=== PATIENT | male | born 1960 | race Caucasian/White ===

== ENCOUNTER 2020-06-03 22:26 | Inpatient (IN) | payer BC ==
--- NOTE | 2020-06-03 23:08 | HP ---
CIWA Score Nausea/Vomitin-No Nausea/No Vomiting Muscle Tremors: 1-None Visible, but [place] Anxiety: 2 Agitation: 2 Paroxysmal Sweats: 3 Orientation: 1-Uncertain about Date Tacttile Disturbances: 0-None Auditory Disturbances: 0-None Visual Disturbances: 0-None Headache: 3-Moderate CIWA-Ar Total Score: 12 - Admission Criteria OAS Guidelines: Admission for Medically Managed Detox: Requires at least one of the followin. CIWA greater than 12 2. Seizures within the past 24 hours 3. Delirium tremens within the past 24 hours 4. Hallucinations within the past 24 hours 5. Acute intervention needed for co occurring medical disorder 6. Acute intervention needed for co occurring psychiatric disorder 7. Severe withdrawal that cannot be handled at a lower level of care (continued vomiting, continued diarrhea, abnormal vital signs) requiring intravenous medication and/or fluids 8. Patient presents the following: Acute intervention needed for co-occurring med or psych disorder (FEELS DEPRESSED, HOPELESS DUE TO RECENT RELAPSE. DENIES SI AT THIS TIME) Admission Criteria Met: Admission criteria met Admission ROS [facility] Chief Complaint: HERE FOR ALCOHOL DETOX. Allergies/Adverse Reactions: Allergies Allergy/AdvReac Type Severity Reaction Status Date / Time No Known Allergies Allergy Verified 06/03/20 23:25 History of Present Illness: HERE FOR ALCOHOL DETOX. CLIENT IS SELF REFERRED REPORTS DRINKING ALCOHOL DAILY FOR THE PAST 5 DAYS AFTER BEING CLEAN FOR THE PAST 4 MONTHS. CLIENT REPORTS LAST DRINK EARLIER TODAY. HE REPORTS DRINKING ABOUT 18/12 oz bottles of bear daily. REPORTS HX/ O BLACKOUTS, DENIES AVH, SEIZURES. HE ALSO REPORTS COCAINE ABUSE. DENIES IVDU. LIVES ALONE, UNEMPLOYED, DENIES LEGALS. Exam Limitations: No Limitations - Ebola screening Have you traveled outside of the country in the last 21 days: No Have you had contact with anyone from an Ebola affected area: No Have you been sick,other than usual withdrawal symptoms: No Do you have a fever: No - Review of Systems Constitutional: Chills, Loss of Appetite, Night Sweats EENT: reports: Dental Problems (PARTIAL DENUTRES) Respiratory: reports: No Symptoms reported Cardiac: reports: No Symptoms Reported GI: reports: Poor Appetite, Poor Fluid Intake : reports: No Symptoms Reported Musculoskeletal: reports: No Symptoms Reported Integumentary: reports: [place] Neuro: reports: Headache Endocrine: reports: No Symptoms Reported Hematology: reports: Easy Bleeding (BRYLINTA AC) Psychiatric: reports: Orientated x3, Anxious, Depressed (DENIES SI) Other Systems: Reviewed and Negative Patient History - Patient Medical History Hx Anemia: No Hx Asthma: No Hx Chronic Obstructive Pulmonary Disease (COPD): No Hx Cancer: No Hx Cardiac Disorders: Yes (CAD- STENTED) Hx Congestive Heart Failure: No Hx Hypertension: Yes Hx Hypercholesterolemia: Yes Hx Pacemaker: No HX Cerebrovascular Accident: No Hx Seizures: No Hx Dementia: No Hx Diabetes: No Hx Gastrointestinal Disorders: No Hx Liver Disease: No Hx Genitourinary Disorders: No Hx Sexually Transmitted Disorders: No Hx Renal Disease (ESRD): No Hx Thyroid Disease: No Hx Human Immunodeficiency Virus (HIV): No Hx Hepatitis C: No Hx Depression: Yes (ZOLOFT) Hx Suicide Attempt: No Hx Bipolar Disorder: No Hx Schizophrenia: No Other Medical History: DENIES - Patient Surgical History Past Surgical History: Yes Hx Cardiac Surgery: Yes (2013 CARDIAC STENTS) Other Surgical History: SPLEENECTOMY Anesthesia Reaction: No - PPD History Previous Implant?: Yes Documented Results: Negative w/o proof Implanted On Prior [facility] Admission?: No PPD to be Administered?: Yes - Smoking Cessation Smoking history: Current every day smoker Have you smoked in the past 12 months: Yes Aproximately how many cigarettes per day: 20 Cigars Per Day: 0 Hx Chewing Tobacco Use: No Initiated information on smoking cessation: Yes 'Breaking Loose' booklet given: 06/03/20 - Substance & Tx. History Hx Alcohol Use: Yes Hx Substance Use: Yes Substance Use Type: Alcohol, Cocaine Hx Substance Use Treatment: Yes ([facility]) - Substances abused Alcohol Other (specify): BEER Substance route: Oral Frequency: Daily Amount used: 18/12OZ CANS Age of first use: 21 Date of last use: 06/03/20 Cocaine Substance route: Inhalation Frequency: 1-3 times last 30 days Amount used: 4 LINES Age of first use: 31 Date of last use: 06/01/20 Admission Physical Exam [facility] - Diagnostic (1) Alcohol dependence with withdrawal, uncomplicated Current Visit: Yes Status: Acute (2) Cocaine dependence, uncomplicated Current Visit: Yes Status: Acute (3) HTN (hypertension) Current Visit: Yes Status: Chronic Qualifiers: Hypertension type: essential hypertension Qualified Code(s): I10 - Essential (primary) hypertension (4) CAD (coronary artery disease) Current Visit: Yes Status: Chronic (5) HLD (hyperlipidemia) Current Visit: Yes Status: Chronic (6) Substance induced mood disorder Current Visit: Yes Status: Suspected (7) Depressed affect Current Visit: Yes Status: Acute (8) At risk for dehydration due to poor fluid intake Current Visit: Yes Status: Acute (9) Nicotine dependence Current Visit: Yes Status: Chronic Qualifiers: Nicotine product type: cigarettes Substance use status: uncomplicated Qualified Code(s): F17.210 - Nicotine dependence, cigarettes, uncomplicated (10) H/O heart artery stent Current Visit: Yes Status: Chronic Cleared for Admission S - Detox or Rehab S Level of Care: Medically Managed Detox Regimen/Protocol: Librium Claeared for Rehab Admission: No Inpatient Rehab Admission - Rehab Decision to Admit Inpatient rehab admission?: No
[2020-06-03 23:32] VITALS: BMI 29.4
[2020-06-03] MEDS ORDERED: ACETAMINOPHEN 325 MG TABLET (FP) PO PRN ×2 (23:45)
[2020-06-03] MEDS ORDERED: MAG HYDROX/AL HYDROX/SIMETH 30 ML UNIT-DOSE CUP PO PRN (23:45)
[2020-06-03] MEDS ORDERED: ONDANSETRON *ODT* 4 MG TABLET SL ONE (23:45)
[2020-06-03] MEDS ORDERED: guaiFENesin 200 MG/10 ML 10 ML UNIT-DOSE CUPS PO PRN (23:45)
[2020-06-03] MEDS ORDERED: METHOCARBAMOL 500 MG TABLET PO PRN (23:45)
[2020-06-03] MEDS ORDERED: MAGNESIUM HYDROX 2400MG/30ML ORAL SUSPENSION 30 ML CUP PO PRN (23:45)
[2020-06-03] MEDS ORDERED: MAGNESIUM CITRATE 300 ML BOTTLE PO PRN (23:45)
[2020-06-03] MEDS ORDERED: DICYCLOMINE HCL 10 MG CAPSULE PO PRN (23:45)
[2020-06-03] MEDS ORDERED: IBUPROFEN 400 MG TABLET (FP) PO PRN (23:45)
[2020-06-03] MEDS ORDERED: MENTHOL/PHENOL 1 EACH UD MM PRN (23:45)
[2020-06-03] MEDS ORDERED: P-EPHED 60MG/TRIPROLIDI 2.5MG TABLET PO PRN (23:45)
[2020-06-03] MEDS ORDERED: NICOTINE POLACRILEX 2 MG GUM BUC PRN (23:45)
[2020-06-03] MEDS ORDERED: BISMUTH SUBSALICYLATE 524 MG/30 ML UD PO PRN (23:45)
[2020-06-04] MEDS ORDERED: chlordiazePOXIDE HCL 10 MG CAPSULE PO PRN (00:04)
[2020-06-04] MEDS: hydrOXYzine PAMOATE 25 MG CAPSULE (FP) PO SCH ×5 (06:29→21:15)
[2020-06-04] MEDS: chlordiazePOXIDE HCL 25 MG CAPSULE PO SCH ×3 (06:29→21:17)
--- NOTE | 2020-06-04 09:52 | PN ---
S CIWA - CIWA Score Nausea/Vomitin-Mild Nausea/No Vomiting Muscle Tremors: 2 Anxiety: 2 Agitation: 2 Paroxysmal Sweats: No Perspiration Orientation: 0-Oriented Tacttile Disturbances: 1-Very Mild Itch/Numbness Auditory Disturbances: 0-None Visual Disturbances: 2-Mild Sensitivity Headache: 1-Very Mild CIWA-Ar Total Score: 11 S Progress Note (SOAP) Subjective: 59 years old male admitted on 06/03/20, first [facility] detox admission, for alcohol withdrawal sx management treating with librium detox regiment mr sheehan states that he had heart attack 2018 with 2 cardiac stents placed at [facility] denies chest pain no dizziness no shortness of breath discussing alcohol related cardiac insult Objective: 06/04/20 09:54 Vital Signs - 24 hr 06/03/20 06/03/20 06/04/20 23:28 23:41 00:35 Temperature 98.5 F 98.5 F 97.3 F L Pulse Rate 83 83 73 Respiratory 18 18 18 Rate Blood Pressure 113/69 113/69 143/80 O2 Sat by Pulse 97 Oximetry (%) 06/04/20 06/04/20 06:59 08:44 Temperature 97.5 F L 96.9 F L Pulse Rate 63 67 Respiratory 18 18 Rate Blood Pressure 113/67 120/69 O2 Sat by Pulse 95 Oximetry (%) 06/04/20 09:57 lab pending Assessment: 06/04/20 09:57 alcohol withdrawal Plan: librium regiment
--- NOTE | 2020-06-04 10:21 | CONSULT ---
[facility] Psychiatric Consult - Data Date of interview: 06/04/20 Admission source: Self-referred Identifying data: Mr Holman is a 59 years old single male, unemployed receiving unemployment benefit, domiciled seeking detox treatment for alcohol and cocaine Substance Abuse History: Reports history of alcohol and cocaine use. 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 Smokes cigarettes 1 ppd Psychiatric History: This is patient's first admission to this facility. He is a cavalier historian. He originally denies previous psychiatric treatment. However, when asked why he is taking Zoloft which is the reason consult was initiated. He told senior medical writer that the psychiatrist at his [facility], a program he attends in [place], started him on it a few months ago for depression. He said that he is not taking it because it is not helping. Denies previous psychatric hospitalization or suicidal attempt. At present, denies experiencing depressive symptoms, S/H ideations. However, reports feeling anxious Physical/Sexual Abuse/Trauma History: Denies history of abuse as a child or DV relationship as an adult Mental Status Exam - Mental Status Exam Alert and Oriented to: Time, Place, Person Cognitive Function: Fair Patient Appearance: Well Groomed Mood: Anxious Affect: Appropriate Patient Behavior: Cooperative Voice Loudness: Normal Thought Process: Intact, Goal Oriented Hallucinations: Denies Suicidal Ideation: Denies Homicidal Ideation: Denies Insight/Judgement: Poor Sleep: Well Appetite: Good Muscle strength/Tone: Normal Gait/Station: Normal Psychiatric Findings - Problem List ([place] 1, 2,3) (1) Depressive disorder Current Visit: Yes Status: Chronic (2) Substance induced mood disorder Current Visit: Yes Status: Ruled-out (3) MDD (major depressive disorder) Current Visit: Yes Status: Ruled-out (4) Substance-induced anxiety disorder Current Visit: Yes Status: Acute (5) Alcohol dependence with withdrawal, uncomplicated Current Visit: Yes Status: Acute (6) Cocaine dependence, uncomplicated Current Visit: Yes Status: Acute (7) Nicotine dependence Current Visit: Yes Status: Chronic Qualifiers: Nicotine product type: cigarettes Substance use status: uncomplicated Qualified Code(s): F17.210 - Nicotine dependence, cigarettes, uncomplicated (8) HLD (hyperlipidemia) Current Visit: Yes Status: Chronic (9) HTN (hypertension) Current Visit: Yes Status: Chronic Qualifiers: Hypertension type: essential hypertension Qualified Code(s): I10 - Essential (primary) hypertension (10) CAD (coronary artery disease) Current Visit: Yes Status: Chronic (11) H/O heart artery stent Current Visit: Yes Status: Chronic - Initial Treatment Plan Initial Treatment Plan: Continue inpatient detoxification
[2020-06-04 10:24] LABS: HEMATOCRIT 37.4 % (35.4-49); HEMOGLOBIN 12.6 GM/dL (11.7-16.9); MCH 31.2 pg (25.7-33.7); MCHC 33.7 g/dl (32.0-35.9); MEAN CELL VOLUME 92.7 fl (80-96); MEAN PLT VOLUME 8.3 fl (7.5-11.1); PLATELET COUNT 330 K/MM3 (134-434); RBC 4.03 M/mm3 (4.00-5.60); RDW 14.8 % (11.9-15.9); WHITE BLOOD COUNT 10.3 K/mm3 (4.0-10.0)
[2020-06-04 10:24] LABS: PH,URINE 6.5 (5.0-8.0); URINE APPEARANCE CLEAR; URINE BILIRUBIN NEGATIVE (NEGATIVE); URINE COLOR YELLOW; URINE GLUCOSE (UA) NEGATIVE (NEGATIVE); URINE KETONE NEGATIVE (NEGATIVE); URINE LEUK ESTERASE NEGATIVE (NEGATIVE); URINE NITRITE NEGATIVE (NEGATIVE); URINE PROTEIN NEGATIVE (NEGATIVE); URINE UROBILINOGEN 0.2 mg/dL (0.2-1.0)
[2020-06-04] MEDS: NICOTINE 21 MG/24 HOURS TOPICAL PATCH TD SCH (10:33)
[2020-06-04] MEDS: PRENATAL VITAMINS W/ FOLIC ACID TABLET (FP) PO SCH (10:33)
[2020-06-04 10:34] LABS: ALBUMIN 3.4 g/dl (3.4-5.0); BILIRUBIN,TOTAL 0.5 mg/dL (0.2-1); BLOOD UREA NITROGEN 11.8 mg/dL (7-18); CALCIUM 8.6 mg/dL (8.5-10.1); CREATININE 1.1 mg/dL (0.55-1.3); POTASSIUM 4.2 mmol/L (3.5-5.1); TOT PROT 6.4 g/dl (6.4-8.2)
[2020-06-04] MEDS ORDERED: METOPROLOL TARTRATE 25 MG TABLET (FP) PO SCH (12:00)
[2020-06-04] MEDS ORDERED: PNEUMOC 13-VAL CONJ-DIP CRM/PF 0.5 ML DISP.SYRIN IM ONE (12:00)
[2020-06-04] MEDS: LISINOPRIL 10 MG TABLET (FP) PO SCH (12:47)
[2020-06-04] MEDS: ASPIRIN 81 MG CHEWABLE TABLETS PO SCH (12:47)
[2020-06-04] MEDS: metoPROLOL SUCCINATE 25 MG TAB.SR.24H (FP) PO SCH (13:19)
[2020-06-04] MEDS: TICAGRELOR 90 MG TABLET PO SCH ×2 (14:56→21:16)
--- NOTE | 2020-06-04 17:16 | EKG ---
Test Reason : Blood Pressure : / mmHG Vent. Rate : 069 BPM Atrial Rate : 069 BPM P-R Int : 180 ms QRS Dur : 088 ms QT Int : 420 ms P-R-T Axes : 062 062 042 degrees QTc Int : 450 ms POOR DATA QUALITY, INTERPRETATION MAY BE ADVERSELY AFFECTED NORMAL SINUS RHYTHM NORMAL ECG NO PREVIOUS ECGS AVAILABLE Confirmed by MD Laureano, Umesh ([id number]) on 06/04/2020 5:15:37 PM Referred By: ZAY Confirmed By:Umesh Tinsley MD
--- NOTE | 2020-06-04 17:16 | EKG ---
Test Reason : Blood Pressure : / mmHG Vent. Rate : 062 BPM Atrial Rate : 062 BPM P-R Int : 180 ms QRS Dur : 086 ms QT Int : 460 ms P-R-T Axes : 044 067 050 degrees QTc Int : 466 ms NORMAL SINUS RHYTHM NORMAL ECG WHEN COMPARED WITH ECG OF 03-JUN-2020 22:55, NO SIGNIFICANT CHANGE WAS FOUND Confirmed by MD Tinsley Edward ([id number]) on 06/04/2020 5:15:42 PM Referred By: ERICH Confirmed By:Umesh Tinsley MD
[2020-06-04] MEDS: ATORVASTATIN CA 80 MG TABLET (FP) PO SCH (21:15)
[2020-06-04] MEDS: THIAMINE HCL 100 MG TABLET (FP) PO SCH (21:16)
[2020-06-04] MEDS: MELATONIN 5 MG TABLETS PO SCH (21:17)
[2020-06-05] MEDS: hydrOXYzine PAMOATE 25 MG CAPSULE (FP) PO SCH ×5 (06:18→22:06)
[2020-06-05] MEDS: chlordiazePOXIDE 5 MG CAPSULE PO SCH ×3 (06:18→22:04)
[2020-06-05] MEDS: ASPIRIN 81 MG CHEWABLE TABLETS PO SCH (09:52)
[2020-06-05] MEDS: TICAGRELOR 90 MG TABLET PO SCH ×2 (09:52→22:05)
[2020-06-05] MEDS: PRENATAL VITAMINS W/ FOLIC ACID TABLET (FP) PO SCH (09:52)
[2020-06-05] MEDS: LISINOPRIL 10 MG TABLET (FP) PO SCH (09:53)
[2020-06-05] MEDS: NICOTINE 21 MG/24 HOURS TOPICAL PATCH TD SCH (09:53)
[2020-06-05] MEDS: metoPROLOL SUCCINATE 25 MG TAB.SR.24H (FP) PO SCH (09:53)
--- NOTE | 2020-06-05 10:10 | PN ---
S CIWA - CIWA Score Nausea/Vomitin-Mild Nausea/No Vomiting Muscle Tremors: 3 Anxiety: 2 Agitation: 1-Slight > Activity Paroxysmal Sweats: No Perspiration Orientation: 0-Oriented Tacttile Disturbances: 1-Very Mild Itch/Numbness Auditory Disturbances: 0-None Visual Disturbances: 2-Mild Sensitivity Headache: 0-None Present CIWA-Ar Total Score: 10 BHS Progress Note (SOAP) Subjective: 59 years old male admitted on 06/03/20 for alcohol withdrawal sx management treating with librium detox regiment feeling ok today resting in bed limited conversation with staff Objective: 06/05/20 10:10 Vital Signs - 24 hr 06/04/20 06/04/20 06/04/20 12:27 16:51 20:53 Temperature 97.3 F L 97.3 F L 97.3 F L Pulse Rate 67 67 68 Respiratory 18 18 18 Rate Blood Pressure 119/74 102/65 107/67 O2 Sat by Pulse 97 96 Oximetry (%) 06/05/20 06/05/20 05:50 08:47 Temperature 97.3 F L 96.9 F L Pulse Rate 63 61 Respiratory 18 18 Rate Blood Pressure 106/63 106/64 O2 Sat by Pulse 96 Oximetry (%) Laboratory Tests 06/03/20 06/04/20 06/04/20 23:52 06:45 06:45 WBC RBC Hgb Hct MCV MCH MCHC RDW Plt Count MPV Sodium Potassium Chloride Carbon Dioxide Anion Gap BUN Creatinine Est GFR (CKD-EPI)AfAm Est GFR (CKD-EPI)NonAf Random Glucose Calcium Total Bilirubin AST ALT Alkaline Phosphatase Total Protein Albumin Urine Color Urine Appearance Urine pH Ur Specific [place] Urine Protein Urine Glucose (UA) Urine Ketones Urine Blood Urine Nitrite Urine Bilirubin Urine Urobilinogen Ur Leukocyte Esterase Syphilis Serology Non-reactive COVID-19 (YAEL) Not detected HIV Ag/Ab Combo Qual Negative 06/04/20 06/04/20 06/04/20 06:45 06:45 07:00 WBC 10.3 H RBC 4.03 Hgb 12.6 Hct 37.4 MCV 92.7 MCH 31.2 MCHC 33.7 RDW 14.8 Plt Count 330 MPV 8.3 Sodium 140 Potassium 4.2 Chloride 107 Carbon Dioxide 28 Anion Gap 5 L BUN 11.8 Creatinine 1.1 Est GFR (CKD-EPI)AfAm 85.31 Est GFR (CKD-EPI)NonAf 73.61 Random Glucose 92 Calcium 8.6 Total Bilirubin 0.5 AST 27 ALT 34 Alkaline Phosphatase 74 Total Protein 6.4 Albumin 3.4 Urine Color Yellow Urine Appearance Clear Urine pH 6.5 Ur Specific [place] 1.004 L Urine Protein Negative Urine Glucose (UA) Negative Urine Ketones Negative Urine Blood Negative Urine Nitrite Negative Urine Bilirubin Negative Urine Urobilinogen 0.2 Ur Leukocyte Esterase Negative Syphilis Serology COVID-19 (YAEL) HIV Ag/Ab Combo Qual lab noted Assessment: 06/05/20 10:11 alcohol withdrawal Plan: librium regiment
--- NOTE | 2020-06-05 14:33 | EKG ---
Test Reason : Blood Pressure : / mmHG Vent. Rate : 063 BPM Atrial Rate : 063 BPM P-R Int : 162 ms QRS Dur : 086 ms QT Int : 456 ms P-R-T Axes : 061 068 057 degrees QTc Int : 466 ms NORMAL SINUS RHYTHM NORMAL ECG WHEN COMPARED WITH ECG OF 04-JUN-2020 06:18, NO SIGNIFICANT CHANGE WAS FOUND Confirmed by Raj Page ([id number]) on 06/05/2020 2:32:48 PM Referred By: Confirmed By:Raj Page
[2020-06-05] MEDS: ATORVASTATIN CA 80 MG TABLET (FP) PO SCH (22:04)
[2020-06-05] MEDS: THIAMINE HCL 100 MG TABLET (FP) PO SCH (22:05)
[2020-06-05] MEDS: MELATONIN 5 MG TABLETS PO SCH (22:05)
[2020-06-06] MEDS ORDERED: chlordiazePOXIDE HCL 10 MG CAPSULE PO PRN
[2020-06-06] MEDS: chlordiazePOXIDE HCL 10 MG CAPSULE PO SCH ×3 (05:58→22:10)
[2020-06-06] MEDS: hydrOXYzine PAMOATE 25 MG CAPSULE (FP) PO SCH ×5 (05:58→22:11)
--- NOTE | 2020-06-06 09:10 | PN ---
S CIWA - CIWA Score Nausea/Vomitin-Mild Nausea/No Vomiting Muscle Tremors: 2 Anxiety: 2 Agitation: 1-Slight > Activity Paroxysmal Sweats: 1-Minimal Palms Moist Orientation: 0-Oriented Tacttile Disturbances: 0-None Auditory Disturbances: 0-None Visual Disturbances: 1-Very Mild Sensitivity Headache: 0-None Present CIWA-Ar Total Score: 8 BHS Progress Note (SOAP) Subjective: 59 years old male admitted on 06/03/20 for alcohol withdrawal sx management treating with librium detox regiment feeling better today less tremor mild anxiety discussing aftercare with staff mr sheehan prefers [facility] for alcohol recovery Objective: 06/06/20 10:48 Vital Signs - 24 hr 06/05/20 06/05/20 06/05/20 12:50 16:43 20:42 Temperature 97.1 F L 97.1 F L 97.7 F Pulse Rate 70 63 71 Respiratory 16 20 18 Rate Blood Pressure 120/67 130/76 125/65 O2 Sat by Pulse 97 95 Oximetry (%) 06/06/20 06/06/20 06:45 08:32 Temperature 97.3 F L 96.5 F L Pulse Rate 65 70 Respiratory 18 18 Rate Blood Pressure 117/63 132/76 O2 Sat by Pulse 96 96 Oximetry (%) Laboratory Tests 06/03/20 06/04/20 06/04/20 23:52 06:45 06:45 WBC RBC Hgb Hct MCV MCH MCHC RDW Plt Count MPV Sodium Potassium Chloride Carbon Dioxide Anion Gap BUN Creatinine Est GFR (CKD-EPI)AfAm Est GFR (CKD-EPI)NonAf Random Glucose Calcium Total Bilirubin AST ALT Alkaline Phosphatase Total Protein Albumin Urine Color Urine Appearance Urine pH Ur Specific [place] Urine Protein Urine Glucose (UA) Urine Ketones Urine Blood Urine Nitrite Urine Bilirubin Urine Urobilinogen Ur Leukocyte Esterase Syphilis Serology Non-reactive COVID-19 (YAEL) Not detected HIV Ag/Ab Combo Qual Negative 06/04/20 06/04/20 06/04/20 06:45 06:45 07:00 WBC 10.3 H RBC 4.03 Hgb 12.6 Hct 37.4 MCV 92.7 MCH 31.2 MCHC 33.7 RDW 14.8 Plt Count 330 MPV 8.3 Sodium 140 Potassium 4.2 Chloride 107 Carbon Dioxide 28 Anion Gap 5 L BUN 11.8 Creatinine 1.1 Est GFR (CKD-EPI)AfAm 85.31 Est GFR (CKD-EPI)NonAf 73.61 Random Glucose 92 Calcium 8.6 Total Bilirubin 0.5 AST 27 ALT 34 Alkaline Phosphatase 74 Total Protein 6.4 Albumin 3.4 Urine Color Yellow Urine Appearance Clear Urine pH 6.5 Ur Specific [place] 1.004 L Urine Protein Negative Urine Glucose (UA) Negative Urine Ketones Negative Urine Blood Negative Urine Nitrite Negative Urine Bilirubin Negative Urine Urobilinogen 0.2 Ur Leukocyte Esterase Negative Syphilis Serology COVID-19 (YAEL) HIV Ag/Ab Combo Qual lab noted Assessment: 06/06/20 10:49 alcohol withdrawal Plan: librium regiment
[2020-06-06] MEDS: PRENATAL VITAMINS W/ FOLIC ACID TABLET (FP) PO SCH (10:24)
[2020-06-06] MEDS: ASPIRIN 81 MG CHEWABLE TABLETS PO SCH (10:24)
[2020-06-06] MEDS: LISINOPRIL 10 MG TABLET (FP) PO SCH (10:24)
[2020-06-06] MEDS: metoPROLOL SUCCINATE 25 MG TAB.SR.24H (FP) PO SCH (10:24)
[2020-06-06] MEDS: TICAGRELOR 90 MG TABLET PO SCH ×2 (10:24→22:11)
[2020-06-06] MEDS: NICOTINE 21 MG/24 HOURS TOPICAL PATCH TD SCH (10:25)
[2020-06-06] MEDS: ATORVASTATIN CA 80 MG TABLET (FP) PO SCH (22:10)
[2020-06-06] MEDS: THIAMINE HCL 100 MG TABLET (FP) PO SCH (22:10)
[2020-06-06] MEDS: MELATONIN 5 MG TABLETS PO SCH (22:10)
[2020-06-07] MEDS ORDERED: chlordiazePOXIDE HCL 10 MG CAPSULE PO ONE (05:00)
[2020-06-07] MEDS: hydrOXYzine PAMOATE 25 MG CAPSULE (FP) PO SCH (05:42)
[2020-06-07 05:55] VITALS: BP 105/65; PULSE 60; TEMP 97.9
--- NOTE | 2020-06-07 10:43 | DS ---
[facility] Detox Discharge Summary Admission Date: 06/03/20 Discharge Date: 05/31/20 - History Present History: Alcohol Dependence Additional Comments: 59 years old male admitted on 06/03/20 for alcohol withdrawal sx management treated with librium detox regiment seen by psychiatrist no medical intervention mr sheehan has completed the librium regiment and is tolerated well alert oriented x 2 speech clearly coherently ambulating steady gaits cardiac s1s2 regular rate rhythm respiratory clear lung sounds bilaterally on auscultation extremities full range of motion Pertinent Past History: time for discharge 42 minutes e prescribe home medication to [facility] pharmacy that mr sheehan is going to [facility] [employer] needs weeks of medications before return to primary care provider mr sheehan states that he does not have a primary care provider encourage mr sheehan to engage with [facility] such as [facility] or [facility] for medical issues - Physical Exam Results Vital Signs: Vital Signs Temperature 97.9 F 06/07/20 05:54 Pulse Rate 60 06/07/20 05:54 Respiratory Rate 18 06/07/20 05:54 Blood Pressure 105/65 06/07/20 05:54 O2 Sat by Pulse Oximetry (%) 97 06/07/20 05:54 Pertinent Admission Physical Exam Findings: alcohol withdrawal Laboratory Tests 06/03/20 06/04/20 06/04/20 23:52 06:45 06:45 WBC RBC Hgb Hct MCV MCH MCHC RDW Plt Count MPV Sodium Potassium Chloride Carbon Dioxide Anion Gap BUN Creatinine Est GFR (CKD-EPI)AfAm Est GFR (CKD-EPI)NonAf Random Glucose Calcium Total Bilirubin AST ALT Alkaline Phosphatase Total Protein Albumin Urine Color Urine Appearance Urine pH Ur Specific [place] Urine Protein Urine Glucose (UA) Urine Ketones Urine Blood Urine Nitrite Urine Bilirubin Urine Urobilinogen Ur Leukocyte Esterase Syphilis Serology Non-reactive COVID-19 (YAEL) Not detected HIV Ag/Ab Combo Qual Negative 06/04/20 06/04/20 06/04/20 06:45 06:45 07:00 WBC 10.3 H RBC 4.03 Hgb 12.6 Hct 37.4 MCV 92.7 MCH 31.2 MCHC 33.7 RDW 14.8 Plt Count 330 MPV 8.3 Sodium 140 Potassium 4.2 Chloride 107 Carbon Dioxide 28 Anion Gap 5 L BUN 11.8 Creatinine 1.1 Est GFR (CKD-EPI)AfAm 85.31 Est GFR (CKD-EPI)NonAf 73.61 Random Glucose 92 Calcium 8.6 Total Bilirubin 0.5 AST 27 ALT 34 Alkaline Phosphatase 74 Total Protein 6.4 Albumin 3.4 Urine Color Yellow Urine Appearance Clear Urine pH 6.5 Ur Specific [place] 1.004 L Urine Protein Negative Urine Glucose (UA) Negative Urine Ketones Negative Urine Blood Negative Urine Nitrite Negative Urine Bilirubin Negative Urine Urobilinogen 0.2 Ur Leukocyte Esterase Negative Syphilis Serology COVID-19 (YAEL) HIV Ag/Ab Combo Qual lab noted - Treatment Hospital Course: Detox Protocol Followed, Detoxed Safely, Responded well, Discharged Condition Good, Rehab Referral Accepted Patient has Accepted a Rehab Referral to: [facility] - Medication Discharge Medications: Ambulatory Orders Aspirin [ASA -] 81 mg PO DAILY 06/03/20 Atorvastatin Ca [Lipitor] 80 mg PO HS #14 tablet 06/07/20 Lisinopril 10 mg PO DAILY #14 tablet 06/07/20 Metoprolol Tartrate [Lopressor -] 25 mg PO DAILY #14 tablet 06/07/20 Ticagrelor [Brilinta -] 90 mg PO BID #30 tablet 06/07/20 - Diagnosis (1) Alcohol dependence with withdrawal, uncomplicated Status: Acute (2) H/O heart artery stent Status: Chronic (3) HLD (hyperlipidemia) Status: Chronic Qualifiers: Hyperlipidemia type: pure hypercholesterolemia Qualified Code(s): E78.00 - Pure hypercholesterolemia, unspecified; E78.0 - Pure hypercholesterolemia (4) HTN (hypertension) Status: Chronic Qualifiers: Hypertension type: essential hypertension Qualified Code(s): I10 - Essential (primary) hypertension (5) Nicotine dependence Status: Acute Qualifiers: Nicotine product type: cigarettes Substance use status: in withdrawal Qualified Code(s): F17.213 - Nicotine dependence, cigarettes, with withdrawal (6) Substance induced mood disorder Status: Suspected - AMA Did Patient Leave Against Medical Advice: No CIWA Score - CIWA Score Nausea/Vomitin-No Nausea/No Vomiting Muscle Tremors: 2 Anxiety: 1-Mildly Anxious Agitation: 1-Slight > Activity Paroxysmal Sweats: No Perspiration Orientation: 0-Oriented Tacttile Disturbances: 0-None Auditory Disturbances: 0-None Visual Disturbances: 0-None Headache: 0-None Present CIWA-Ar Total Score: 4
== END 2020-06-07 08:28 | disposition home or self-care (01) | DRG 774 ==
LOC: YASAS 22:26 → Y3N 23:48
PROVIDERS: ADMIT Allergy & Immunology; ATTEND Allergy & Immunology
PROC: HZ2ZZZZ Detoxification Services for Substance Abuse Treatment (ICD-10-PCS; principal; 2020-06-03)
DX: F10.230 Alcohol dependence with withdrawal, uncomplicated (principal); F14.20 Cocaine dependence, uncomplicated; F17.210 Nicotine dependence, cigarettes, uncomplicated; F19.24 Other psychoactive substance dependence with psychoactive substance-induced mood disorder; F19.280 Other psychoactive substance dependence with psychoactive substance-induced anxiety disorder; F32.9 Major depressive disorder, single episode, unspecified; I25.10 Atherosclerotic heart disease of native coronary artery without angina pectoris; I10 Essential (primary) hypertension; I25.2 Old myocardial infarction; Z79.02 Long term (current) use of antithrombotics/antiplatelets; E78.00 Pure hypercholesterolemia, unspecified; E78.5 Hyperlipidemia, unspecified; R45.89 Other symptoms and signs involving emotional state; R63.8 Other symptoms and signs concerning food and fluid intake; Z90.81 Acquired absence of spleen
CPT/HCPCS: 36415; 80053; 81003; 85027; 86780; 87389; 93005; 93010; U0003